=== PATIENT | male | born 1965 | race Caucasian/White ===

== ENCOUNTER 2022-10-08 08:11 | Emergency (ER) | payer BC, SELFPAY ==
[2022-10-08 08:16] VITALS: BP 156/88; PULSE 81; RESP 16; TEMP 36.6; O2SAT 97; BMI 29.1
--- NOTE | 2022-10-09 05:32 | ED_ITS ---
HPI - Extremity Injury (Upper) General Chief Complaint: Extremity Pain/Injury, Upper Stated Complaint: RT shoulder pain Time Seen by Provider: 10/08/22 08:36 History of Present Illness HPI narrative: 56-year-old man presenting to the emergency department with complaint of deep painful severe ache in his right arm. There is some numbness in his thumb. No particular trauma. No exacerbating or relieving factors although does indicate that if he bends his head/neck anteriorly into the left a little bit maybe it is momentarily and partially relieved. He indicates area of discomfort sometimes in his shoulder blade otherwise down his deltoid and outer lateral arm. Worsening over 2 weeks. Was intermittent now persistent. No rashes. No particular headache. He tends to just tough things out but this is too difficult. Has not been able to sleep. Ibuprofen is not cutting it. He is hoping for some way to relieve his pain. He was able to get things going at his job at the [employer] this morning but then just had to have this addressed. Related Data Home Medications Medication Instructions Recorded Confirmed amlodipine 5 mg tablet (Norvasc) 5 mg PO DAILY 10/08/22 10/08/22 fluticasone 250 mcg-salmeterol 50 1 inh inhalation DAILY 10/08/22 10/08/22 mcg/dose blistr powdr for inhalation (Advair Diskus) fluticasone propionate 50 1 spray intranasal DAILY PRN 10/08/22 10/08/22 mcg/actuation nasal spray,suspension (24 Hour Allergy Relief) losartan 25 mg tablet 25 mg PO DAILY 10/08/22 10/08/22 Allergies Allergy/AdvReac Type Severity Reaction Status Date / Time Sulfa (Sulfonamide Allergy rash Verified 10/08/22 08:21 Antibiotics) Review of Systems Status of ROS: Reports: 6 or more systems reviewed and unremarkable except as noted in History and below [facility] Social History Smoking Status: Never smoker Do you use any of these nicotine containing products: None Second hand tobacco smoke exposure: No How often do you have a drink containing alcohol: never How often do you have six or more drinks on one occasion: Never AUDIT-C Alcohol total score: 0 Non-prescribed substance use: denies use service: No Exam Narrative: Exam Narrative: Pleasant. Holding right arm in front of his body with his left hand. Calm but increasingly restless in apparent pain over time of interview. Skin is warm and dry without lesion. He is well muscled. Spurling's is positive. He does not have midline neck or back tenderness. No evidence of trauma. Not really with pain to palpation about the shoulder. 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 Sensation intact. Clearly in pain. Heart in regular rate and rhythm. Isolating the shoulder-he has good range of motion in the shoulder. There is not AC area or bursitis area pain. Normal appearing clavicle. Const: Vital Signs, click to edit/add: Vital Signs - 24 hr 10/08/22 08:16 Temperature 97.8 F Pulse Rate [Right Pulse Oximeter] 81 Respiratory Rate 16 Blood Pressure [Ri ght Upper Arm] 156/88 H Pulse Oximetry 97 Oxygen Delivery Me thod Room Air Documenting provider has reviewed patient's vital signs: yes Course Vital Signs Vital signs: Initial Vital Signs Temperature 97.8 F 10/08/22 08:16 Temperature Source Temporal Artery Scan 10/08/22 08:16 Pulse Rate 81 10/08/22 08:16 Respiratory Rate 16 10/08/22 08:16 Blood Pressure 156/88 H 10/08/22 08:16 Blood Pressure Mean 110 10/08/22 08:16 Blood Pressure Position Sitting 10/08/22 08:16 Pulse Oximetry 97 10/08/22 08:16 Oxygen Delivery Method 10/08/22 08:16 Vital Signs Temperature 97.8 F 10/08/22 08:16 Pulse Rate 81 10/08/22 08:16 Respiratory Rate 16 10/08/22 08:16 Blood Pressure 156/88 H 10/08/22 08:16 Pulse Oximetry 97 10/08/22 08:16 Oxygen Delivery Method 10/08/22 08:16 Temperature 97.8 F 10/08/22 08:16 Pulse Rate 81 10/08/22 08:16 Respiratory Rate 16 10/08/22 08:16 Blood Pressure 156/88 H 10/08/22 08:16 Pulse Oximetry 97 10/08/22 08:16 Oxygen Delivery Method 10/08/22 08:16 MDM - Extremity Injury (Upper) MDM Narrative Medical decision making narrative: I do not believe that etiology of his discomfort is within the shoulder region. I think this is radicular pain that appears to follow the C6 dermatome. I suppose there could be some cervical spurs or other bony lesion contributing. There has been no trauma. We did discuss potential x-ray imaging here today but better singular imaging most likely MRI which I do not believe I can do at the moment. Recommending treatment for pain and steroids. Close follow-up. See patient discharge plan. Medical Records Attestation: I reviewed the patient's medical records. Discharge Plan Discharge Clinical Impression: Cervical radiculopathy Patient Disposition: Home, Self-Care Condition: Stable Additional Instructions: Neck pull-down stretches might be helpful. I think it will be hard to affect change in your discomfort by using cold packs or warm packs but you can try. For now in with a little food can take up to 800 mg of ibuprofen per dose or alternative to that could be up to 500 mg of naproxen 2 times daily. Either can be combined with up to 1000 mg of acetaminophen per dose but keep in mind that each tablet of prescribed Percocet contains 325 mg of acetaminophen. I would try to call today to schedule follow-up with primary care. This might involve next level imaging, referrals to physical therapy. You might also schedule an appointment with Dr. Rush Rocha [phone] as I am anticipating that injections in your neck might be also involved in your treatment. You are welcome to follow up also with a chiropractor. Locally Omid Victoria [phone] or Heidi Hobbs [phone]. I would not do large cracking of your neck however. Percocet is an opiate. Can contribute to sedation and constipation. Just because you're experiencing pain, I think hydration is important. Try to drink 2-3 L of water daily. This can also help with any potential constipation. You might want to pair Percocet dosing with 1-2 tablets of senna daily. Percocet and prednisone from [facility]. Take the prednisone as 60 mg daily for 3 days then 40 mg daily for 4 days then 20 mg daily for 3 days Prescriptions: No Action fluticasone propion-salmeterol [Advair Diskus] 250-50 mcg/dose blister with device 1 inh inhalation DAILY losartan 25 mg tablet 25 mg PO DAILY amlodipine [Norvasc] 5 mg tablet 5 mg PO DAILY fluticasone propionate [24 Hour Allergy Relief] 50 mcg/actuation spray,suspension 1 spray intranasal DAILY PRN Rx Instructions: administer into each nostril Stand Alone Forms: [employer] Instructions
== END 2022-10-08 09:36 | disposition home or self-care (01) ==
PROVIDERS: Emergency Provider Family Medicine; PCP Family Medicine
DX: M54.12 Radiculopathy, cervical region (principal)
CPT/HCPCS: 99283

== ENCOUNTER 2024-06-26 15:53 | Outpatient (CLI) | payer BC, SELFPAY ==
[2024-06-26 17:01] LABS: PSA Diagnostic* 0.26 ng/mL (0.10-4.00)
[2024-06-28 18:06] LABS: Testosterone, Adult Male 401 ng/dL (300-890)
== END 2024-06-26 15:54 | disposition home or self-care (01) ==
LOC: NPINS 15:59 → LAB 16:02
PROVIDERS: PCP Family Medicine; Visit Provider Nurse Practitioner
DX: C61 Malignant neoplasm of prostate (principal)
CPT/HCPCS: 36415; 84153; 84403

== ENCOUNTER 2024-09-29 15:00 | Outpatient (RCR) | payer SELFPAY ==
--- NOTE | 2024-07-01 14:40 | URNOTE ---
Addendum entered by Randi Ashton RN 07/07/24 11:25: Date range:07/01/2024 to 12/19/2024. Original Note: Request received for authorization for Ruben ([id number]). Prior authorization is approved in Letter of agreement with [facility] on behalf of [facility] for Buy & Bill Hazel ID:[id number] (scanned doc) with 84 day schedule.
[2024-07-03 13:06] VITALS: BP 141/90; PULSE 75; RESP 16; TEMP 37; O2SAT 96
[2024-07-03] MEDS: LEUPROLIDE ACETATE 22.5 MG (SQ) SYRINGE SUBCUT (13:10)
--- NOTE | 2024-07-07 11:13 | ONC.NURNOTE ---
Dx: prostate cancer
[2024-09-29 15:10] VITALS: BP 134/96; PULSE 73; RESP 16; TEMP 36.2; O2SAT 95
[2024-09-29] MEDS: LEUPROLIDE ACETATE (ELIGARD) 22.5 MG INJ SUBCUT (15:34)
== END 2024-12-22 23:59 | disposition home or self-care (01) ==
LOC: CCIC 15:00
PROVIDERS: PCP Family Medicine; Referring Provider Family Medicine; Visit Provider Clinical Nurse Specialist
DX: C61 Malignant neoplasm of prostate (principal)
CPT/HCPCS: 96401; 96402; 99211; J9217